=== PATIENT | female | born 1990 | race African-American/Black ===

== ENCOUNTER → 2020-10-26 09:26 | Outpatient (CLI) | payer BC, SELFPAY ==
--- NOTE | ~2020-10-26 | XR_ITS ---
XR hand LT min 3V DATE: 10/26/2020 09:45 INDICATION: Left fourth digit proximal injury TECHNIQUE: 3 views of the left hand COMPARISON: None FINDINGS: Slightly displaced small cortical avulsion fracture at the anterolateral base of the middle phalanx of the fourth digit. No other fracture or dislocation or other significant bony abnormality. IMPRESSION: Slightly displaced small cortical avulsion fracture of the anterolateral base of the midd le phalanx of the fourth digit Reviewed, dictated and finalized at location B. IMPRESSION: Slightly displaced small cortical avulsion fracture of the anterola teral base of the middle phalanx of the fourth digit
== END ==
PROVIDERS: PCP Emergency Medicine; Visit Provider Emergency Medicine
DX: S62.623A Displaced fracture of middle phalanx of left middle finger, initial encounter for closed fracture (principal)
CPT/HCPCS: 73130